=== PATIENT | female | born 1985 | race Caucasian/White ===

== ENCOUNTER 2017-07-08 05:17 | Day surgery (SDC) | payer MEDICAID ==
[~2017-07-08] VITALS: Ht 152.4 cm; Wt 78.9 kg
--- NOTE | ~2017-07-08 | OP ---
PATIENT NAME: ARI BURCH MEDICAL RECORD: [id number] :85 LOCATION:D.OPS ADMISSION DATE: SURGEON: AARON TINOCO MD DATE OF OPERATION: 07/08/2017 PREOPERATIVE DIAGNOSES: 1. Anal condyloma. 2. Labial condyloma. 3. Tobacco dependence syndrome. 4. Seizure disorder. POSTOPERATIVE DIAGNOSES: 1. Anal condyloma. 2. Labial condyloma. 3. Tobacco dependence syndrome. 4. Seizure disorder. PROCEDURE: Excision of anal condyloma. SURGEON: Aaron Tinoco MD COSURGEON: Jay West REPORT OF OPERATION: The patient's perianal region was prepped and draped in sterile fashion. I approached the perianal condylomas first. There were 2 anal condylomas on the right side of the perianal region and 2 more on the left side. These were excised using electrocautery. There was also one large and one that was present in the crease of the gluteal fold. The skin was excised giving a total of 5 removed. We then inserted an anoscope, we could see there was a circular ring of tissue at the dentate line, which had large amount of condylomatous material. The largest one was on the right side in the lateral region. This was excised down to the sphincteric musculature. We controlled any bleeding using electrocautery. There were then 3 other areas which were approached at this time. We removed segments of condylomatous material anteriorly, posteriorly and on the left lateral side. This still left some condylomatous material on the dentate line, but I felt any more excision might cause some stenosis of the anus. We assured there was no sign of any active bleeding at any of these sites and any that was present was treated with electrocautery. We then irrigated out the wound thoroughly with normal saline. At this point, Dr. West came in and performed the excision of the labial condylomas. COMPLICATIONS: None. CONDITION: Stable. ANESTHESIA: General endotracheal. BLOOD LOSS: 30 mL. TRANSINT:[id number] Voice Confirmation ID: [id number] DOCUMENT ID: [id number] OPERATIVE REPORT [id number] ARI BURCH AARON TINOCO MD at 0841 CC: [id number] DICTATION DATE: 07/08/17 0832 [facility] P[facility]ER: 07/08/17 [address] [facility] [place] 07/08/17 [facility] [address] [facility] [facility] [address]
--- NOTE | ~2017-07-08 | OP ---
PATIENT NAME: ARI BURCH MEDICAL RECORD: [id number] :85 LOCATION:D.OPS ADMISSION DATE: SURGEON: HARDY WEST MD DATE OF OPERATION: 07/08/2017 PREOPERATIVE DIAGNOSES: Vulvar, vaginal, and perianal condyloma. POSTOPERATIVE DIAGNOSES: Vulvar, vaginal, and perianal condyloma. PROCEDURE: Excision of vulvar and vaginal condyloma, combined case with Dr. Aaron Boyer. SURGEON: Hardy West MD ANESTHESIA: General. INTRAVENOUS FLUIDS: Per anesthesia record. SPECIMENS: Included multiple condylomas. COMPLICATIONS: None apparent. DESCRIPTION OF PROCEDURE: I entered the case following Dr. Boyer's excision of perianal condyloma. At this point, attention was turned to multiple condylomas involving the vulva and the posterior fourchette of the vagina. The Bovie cautery was used to excise several 3 mm condylomas noted in the vulva immediately adjacent to the labia minora. This was performed primarily on the left hand side. The posterior fourchette of the vagina was noted to have diffuse condylomatous change. The carbon dioxide laser was then used to remove the epithelial layer to the level of the dermis. Good hemostasis was noted. The laser was also used to remove the basal layer of the epithelium from several sites where the primary lesion was debulked using the Bovie cautery. This was performed at approximately 7-8 spots mostly on the left vulva and the posterior fourchette of the vagina. Good hemostasis was noted from all the sites following the procedure, the patient tolerated the procedure well, was transported to postanesthesia recovery stable without incident. TRANSINT:[id number] Voice Confirmation ID: [id number] DOCUMENT ID: [id number] HARDY WEST MD at 1614 CC: [id number] DICTATION DATE: 07/19/17 0637 ICE DELIVERY DRIVER: 07/19/17 0825 [facility] 07/08/[address] [address]
[~2017-07-08 05:17] MED LIST: ACETAMINOPHEN500 M1 PO; COLACE100 MG PO; EXCEDRIN CAPLET1 TAB PO; HYDROCODONE-APA1 TAB PO; IBUPROFEN600 MG PO; MILK OF MAGNESI30 ML PO; MIRALAX17 GM PO; PRENAVITE1 TAB PO
[2017-07-08 06:46] VITALS: BP 97/67; Ht 152.4 cm; Wt 78.9 kg
[2017-07-08 07:07] LABS: BASOPHILS 0.6 % (0-2); EOSINOPHILS 2.6 % (0-7); HEMATOCRIT 38.1 % (36.0-48.0); HEMOGLOBIN 12.7 g/dL (12-16); IMMATURE GRANULOCYTES 0.2 % (0-5); LYMPHOCYTES 34.5 % (15-50); MCH 28.5 pg (26.0-34.0); MCHC 33.3 g/dL (31.0-37.0); MCV 85.6 fL (80.0-100.0); MONOCYTES 7.3 % (2-11); NEUTROPHILS 54.8 % (40-80); RBC 4.45 10x6/uL (4.00-5.40); RDW 14.1 % (11.5-14.5); WBC 8.4 10x3/uL (4.8-10.8)
[2017-07-08 07:12] LABS: PLATELET COUNT 339 10x3/uL (130-400)
[2017-07-08 07:21] LABS: CALC OSMOLALITY 277 mosm/kg (275-300); CHLORIDE - SERUM 106 mmol/L (98-107); CREATININE - SERUM 0.8 mg/dL (0.6-1.3); GLUCOSE 88 mg/dL (74-106); POTASSIUM - SERUM 3.5 mmol/L (3.5-5.1); SODIUM 141 mmol/L (136-145); UREA NITROGEN 6 mg/dL (7-18); eGFR NON AFRICAN AMERICAN 88 mL/min (90-120)
[2017-07-08] MEDS ORDERED: HYDROCODONE-APA1 TAB PO (08:28)
== END 2017-07-08 10:31 | disposition home or self-care (01) ==
LOC: D.OPS 05:17 → D.PAN 08:00 → D.OPS 10:30 → D.PAN 10:30 → D.OPS 10:31
PROVIDERS: Surgery
DX: A63.0 Anogenital (venereal) warts (principal); F17.200 Nicotine dependence, unspecified, uncomplicated; G40.909 Epilepsy, unspecified, not intractable, without status epilepticus; Z01.812 Encounter for preprocedural laboratory examination